=== PATIENT | male | born 1970 | race Caucasian/White ===

== ENCOUNTER 2016-08-07 07:02 | Emergency (ER) | payer MEDICAID ==
[2016-08-07 07:17] VITALS: RESP 18
--- NOTE | 2016-08-07 07:26 | UCPHY ---
H & P Time Seen by Provider: 08/07/16 07:13 Patient Type: Established HPI/ROS: 45-year-old male presents complaining of cough cold symptoms painful urination, and diarrhea for several days. He believes he may have the flu. His is currently being treated for bronchitis. Review of systems As per HPI General no fever no chills no weakness HEENT no eye pain no eye discharge. No eye redness, no sore throat Respiratory positive cough, no shortness of breath Cardiac no chest pain, no peripheral edema GI no abdominal pain, no diarrhea, no constipation, no nausea, no vomiting no flank pain, no hematuria, positive dysuria Musculoskeletal positive myalgias, no joint pain Heme no easy bruising, no easy bleeding Endo no polyuria, no polydipsia Skin no rashes, no pruritus Neuro no syncope, no dizziness, no headaches Psych is no suicidal ideation, no homicidal ideation Past Medical/Surgical History: GERD Epididymitis Social History: Rare alcohol, denies drug use Smoking Status: Never smoked Physical Exam: 45-year-old male Alert and oriented nontoxic appearance, no acute distress afebrile Atraumatic normocephalic Extraocular muscles intact, anicteric Nares mild yellowish discharge Oropharynx mild erythema no tonsillar swelling no exudate no uvular deviation, tolerating own secretions Neck supple no lymphadenopathy Lungs clear to auscultation bilaterally Heart regular rate and rhythm Abdomen normoactive bowel sounds soft nontender Extremities no cyanosis clubbing or edema Skin no rash Constitutional: Initial Vital Signs Temperature (C) 37.1 C 08/07/16 07:13 Heart Rate 76 08/07/16 07:13 Respiratory Rate 18 08/07/16 07:13 Blood Pressure 168/119 H 08/07/16 07:13 O2 Sat (%) 94 08/07/16 07:13 O2 Delivery Mode Room Air Allergies/Adverse Reactions: acetaminophen [From Vicodin] Allergy (Verified 08/07/16 07:13) hydrocodone bitartrate [From Vicodin] Allergy (Verified 08/07/16 07:13) Penicillins Adverse Reaction (Severe, Verified 08/07/16 07:13) Rash Home Medications: Medication Instructions Recorded Prilosec Otc 11/15/14 Benzonatate [Tessalon Pearles (RX)] 100 mg PO TID PRN #30 cap 08/07/16 Oseltamivir Phosphate [Tamiflu 75 75 mg PO BID #10 cap 08/07/16 mg (*)] Medical Decision Making ED Course/Re-evaluation: Patient seen and evaluated for cough cold, dysuria. Physical exam significant for nasal discharge, clear lungs, no scrotal swelling or tenderness. Influenza swab pending, influenza a positive Urinalysis pending Impression Influenza Plan Tamiflu Supportive care Follow up with primary care physician - Data Points Laboratory Results: 08/07/16 08/07/16 07:30 07:25 Urine Color YELLOW Urine Appearance CLEAR Urine pH 5.5 (5.0-7.5) Ur Specific Bennett >= 1.030 (1.002-1.030) Urine Protein NEGATIVE (NEGATIVE) Urine Ketones NEGATIVE (NEGATIVE) Urine Blood NEGATIVE (NEGATIVE) Urine Nitrate NEGATIVE (NEGATIVE) Urine Bilirubin NEGATIVE (NEGATIVE) Urine Urobilinogen 0.2 EU (0.2-1.0) Ur Leukocyte Esterase NEGATIVE (NEGATIVE) Ur Culture Indicated? NOT INDICATED (NI) Urine Glucose NEGATIVE (NEGATIVE) Influenza Typ A,B (DFA) POSITIVE FOR FLU A H (NEGATIVE) Departure - Departure Disposition: Home, Routine, Self-Care Clinical Impression: Influenza A Condition: Good Instructions: Influenza (ED) Referrals: NONE *PRIMARY CARE P,. [Primary Care Provider] - As per Instructions Stand Alone Forms: Work Excuse Prescriptions: Oseltamivir Phosphate [Tamiflu 75 mg (*)] 75 mg PO BID #10 cap Benzonatate [Tessalon Pearles (RX)] 100 mg PO TID PRN #30 cap PRN Reason: Cough, Severe - PQRS PQRS Measurement: Not applicable
[2016-08-07 07:29] LABS: COLOR YELLOW; LEUKOCYTE ESTERASE,URINE NEGATIVE (NEGATIVE); NITRITE,URINE NEGATIVE (NEGATIVE); PH,URINE 5.5 (5.0-7.5)
[2016-08-07 07:52] VITALS: BP 155/67; PULSE 89; TEMP 98.6; O2SAT 95
== END 2016-08-07 07:54 | disposition home or self-care (01) ==
LOC: CED 07:02
DX: J10.1 Influenza due to other identified influenza virus with other respiratory manifestations (principal); R30.9 Painful micturition, unspecified; R19.7 Diarrhea, unspecified; K21.9 Gastro-esophageal reflux disease without esophagitis; N45.1 Epididymitis
CPT/HCPCS: 81003-PO; 87400-PO; 99214-PO; G0463-PO

== ENCOUNTER 2016-11-03 21:51 | Emergency (ER) | payer MEDICAID ==
--- NOTE | 2016-11-03 22:09 | EDPHY ---
H & P Time Seen by Provider: 11/03/16 22:04 HPI/ROS: 46-year-old male presents complaining toothache and gum swelling around that tooth. He states he saw the dentist yesterday who started him on clindamycin and Percocet and told him he needs an extraction.He has run out of his Percocet , and feels like the swelling around that tooth has worsened. Review of systems General no fever no chills no weakness HEENT no eye pain no eye discharge. No eye redness, no sore throat Respiratory no cough, no shortness of breath Cardiac no chest pain, no peripheral edema GI no abdominal pain, no diarrhea, no constipation, no nausea, no vomiting no flank pain, no hematuria, no dysuria Musculoskeletal no myalgias, no joint pain Heme no easy bruising, no easy bleeding Endo no polyuria, no polydipsia Skin no rashes, no pruritus Neuro no syncope, no dizziness, no headaches Psych is no suicidal ideation, no homicidal ideation Past Medical/Surgical History: History of influenza August 2016 Social History: denies excessive alcohol or drug use Smoking Status: Never smoked Physical Exam: 46-year-old male alert and oriented no acute distress nontoxic appearance Alert and oriented in no acute distress nontoxic appearance, afebrile Atraumatic normocephalic oropharynx-no trismus positive poor dentition positive multiple cavities left upper posterior molar with cavity, with circumferential erythema and edema no purulent drainage no fluctuant pocket swelling extends to left upper palate tolerating his own secretions, no tongue swelling no uvular deviation Neck no JVD Lungs clear to auscultation, no respiratory distress Heart regular rate and rhythm Extremities no cyanosis clubbing edema Constitutional: Initial Vital Signs Temperature (C) 37.0 C 11/03/16 22:07 Heart Rate 67 11/03/16 22:07 Respiratory Rate 18 11/03/16 22:07 Blood Pressure 163/73 H 11/03/16 22:07 O2 Sat (%) 97 11/03/16 22:07 O2 Delivery Mode Room Air Allergies/Adverse Reactions: acetaminophen [From Vicodin] Allergy (Verified 11/03/16 22:03) hydrocodone bitartrate [From Vicodin] Allergy (Verified 11/03/16 22:03) Penicillins Adverse Reaction (Severe, Verified 11/03/16 22:03) Rash Home Medications: Medication Instructions Recorded Prilosec Otc 11/15/14 Medical Decision Making ED Course/Re-evaluation: patient seen and evaluated for worsening tooth pain with swelling impression dental abscess plan continue current clindamycin and pain medicine see dentist 1st thing in the morning return if difficulty swallowing or any tongue swelling Departure - Departure Disposition: Home, Routine, Self-Care Clinical Impression: Abscessed tooth Condition: Good Instructions: Dental Abscess (ED) Referrals: THUY ANTONY [Primary Care Provider] - As per Instructions
[2016-11-03 22:13] VITALS: BP 163/73; PULSE 67; RESP 18; TEMP 98.6; O2SAT 97
[2016-11-03] MEDS ORDERED: OXYCODONE/APAP 5/325MG PREPACK#4 BTL TAKEHOME ONE ×2 (22:17→22:27)
== END 2016-11-03 22:33 | disposition home or self-care (01) ==
LOC: CED 21:51
DX: K04.7 Periapical abscess without sinus (principal)

== ENCOUNTER → 2016-12-05 | Emergency (ER) | payer MEDICAID ==
[~2016-12-05] MED LIST: ERYTHROMYCIN 0.5% 1 GM OPHT.OINT LEFTEYE ONE; ERYTHROMYCIN 0.5% 1 GM OPHT.OINT ONE; OXYCODONE/APAP 5/325MG PREPACK#4 BTL TAKEHOME ONE
[2016-12-05 13:55] VITALS: BP 154/62; PULSE 75; RESP 20; TEMP 98; O2SAT 97
--- NOTE | 2016-12-05 14:04 | EDPHY ---
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 He had immediate onset of pain. Does not have had any prior eye injuries in the past. Does not wear glasses or contacts. No discharge. ROS: 10 point Review of Systems is negative except as noted in the HPI. PMH: None Medications: None Allergies: No known drug allergies Social History: No smoking, no alcohol, no recreational drug use Family History: non-contributory Physical Exam: Eye Exam Visual Acuity: Per nurse's note EOM: Intact OU Visual Garcia: Intact OU Pupil: Equal, round and reactive to light and accomodation OU External: Lids, lashes and margins normal OU Slit Lamp; Normal Conjuctiva, Iris normal, Cornea defect appearing in the 1 -2 o'clock position, Anterior chambers clear without cells or flare, no hyphema , normal angles Fluorosceine exam: There is fluorescein uptake over the cornea in the 1 o' clock position, there is no leakage of aqueous humor. - Personal History Current Tetanus Diphtheria and Acellular Pertussis (TDAP): Yes Tetanus Vaccine Date: 2011 - Medical/Surgical History Hx Asthma: No Hx Chronic Respiratory Disease: No Hx Diabetes: No Hx Cardiac Disease: No Hx Renal Disease: No Hx Cirrhosis: No Hx Alcoholism: No Hx HIV/AIDS: No Hx Splenectomy or Spleen Trauma: No Other PMH: GERD, nose surgery, gout, epiididymitis - Social History Smoking Status: Never smoked Constitutional: Initial Vital Signs Temperature (C) 36.6 C 12/05/16 13:54 Heart Rate 75 12/05/16 13:54 Respiratory Rate 20 12/05/16 13:54 Blood Pressure 154/62 H 12/05/16 13:54 O2 Sat (%) 97 12/05/16 13:54 O2 Delivery Mode Room Air Allergies/Adverse Reactions: acetaminophen [From Vicodin] Allergy (Verified 11/03/16 22:03) hydrocodone bitartrate [From Vicodin] Allergy (Verified 11/03/16 22:03) Penicillins Adverse Reaction (Severe, Verified 11/03/16 22:03) Rash Home Medications: Medication Instructions Recorded Prilosec Otc 11/15/14 Departure - Departure Disposition: Home, Routine, Self-Care Clinical Impression: Corneal abrasion Condition: Good Instructions: Corneal Abrasion (ED) Additional Instructions: Apply eye ointment every 4 hours while awake for the next 3 days. You may take ibuprofen and acetaminophen during the day while awake. You may take hydrocodone for pain at night. Follow up with her eye doctor in 2-3 days if symptoms are not improving. Return to the emergency department for increasing pain, discharge from the eye, fevers, chills, or any other concerns. Referrals: Otto Cotto MD [Medical Doctor] - As per Instructions
== END | disposition home or self-care (01) ==
LOC: CED 13:43
DX: S05.02XA Injury of conjunctiva and corneal abrasion without foreign body, left eye, initial encounter (principal); W22.8XXA Striking against or struck by other objects, initial encounter; Y92.009 Unspecified place in unspecified non-institutional (private) residence as the place of occurrence of the external cause

== ENCOUNTER 2018-09-10 17:45 | Emergency (ER) | payer MEDICAID ==
--- NOTE | 2018-09-10 18:36 | EDPHY ---
H & P Stated Complaint: c/o ST/fevers/cough x3 days Time Seen by Provider: 09/10/18 18:02 HPI/ROS: 48 yo M presents c/o sore throat, fever, cough for 3 days. He went to work today but felt awful. Review of systems As per HPI General positive fever positive chills s no weakness HEENT no eye pain no eye discharge. No eye redness, positive sore throat Respiratory positive cough , no shortness of breath Cardiac no chest pain, no peripheral edema GI no abdominal pain, no diarrhea, no constipation, no nausea, no vomiting no flank pain, no hematuria, no dysuria Musculoskeletal no myalgias, no joint pain Heme no easy bruising, no easy bleeding Endo no polyuria, no polydipsia Skin no rashes, no pruritus Neuro no syncope, no dizziness, no headaches Psych is no suicidal ideation, no homicidal ideation Source: Patient Exam Limitations: No limitations - Personal History Current Tetanus Diphtheria and Acellular Pertussis (TDAP): Yes Tetanus Vaccine Date: 2011 - Medical/Surgical History Hx Asthma: No Hx Chronic Respiratory Disease: No Hx Diabetes: No Hx Cardiac Disease: No Hx Renal Disease: No Hx Cirrhosis: No Hx Alcoholism: No Hx HIV/AIDS: No Hx Splenectomy or Spleen Trauma: No Other PMH: GERD, nose surgery, gout, epiididymitis - Family History Significant Family History: No pertinent family hx - Social History Smoking Status: Never smoked Alcohol Use: Occasionally Drug Use: None - Physical Exam Exam: 48-year-old male Alert and oriented in no acute distress nontoxic appearance, afebrile Atraumatic normocephalic Extraocular muscles intact, anicteric Neck-supple, positive anterior cervical lymphadenopathy mildly tender to palpation Oropharynx positive enlarged tonsils, erythematous, no uvular deviation, no purulent exudate, tolerating own secretions, no trismus Lungs clear to auscultation bilaterally Heart regular rate and rhythm Abdomen normoactive bowel sounds soft nontender Extremities no cyanosis clubbing edema Skin no rash Constitutional: Initial Vital Signs Temperature (C) 37.4 C 09/10/18 18:08 Heart Rate 70 09/10/18 18:08 Respiratory Rate 18 09/10/18 18:08 Blood Pressure 151/85 H 09/10/18 18:08 O2 Sat (%) 93 09/10/18 18:08 O2 Delivery Mode Room Air Allergies/Adverse Reactions: Penicillins Allergy (Severe, Verified 12/23/16 20:49) Rash acetaminophen [From Vicodin] Allergy (Verified 11/03/16 22:03) hydrocodone bitartrate [From Vicodin] Allergy (Verified 11/03/16 22:03) Home Medications: Medication Instructions Recorded Prilosec Otc 11/15/14 Concerta 09/10/18 Medical Decision Making ED Course/Re-evaluation: Patient seen and evaluated for sore throat fevers cough. IV established labs drawn Given 1 L normal saline, Decadron 10 mg IV push, Toradol 30 mg IV push CBC within normal limits Strep negative Influenza negative BMP within normal limits Impression Viral syndrome Plan DC home Symptomatic care Follow-up PCP Differential Diagnosis: Differential diagnosis considered but not limited to: URI, bronchitis, streptococcal pharyngitis, pharyngitis, influenza, viral syndrome - Data Points Laboratory Results: 09/10/18 19:05 POC Sodium 140 mEq/L mEq/L (135-145) POC Potassium 3.7 mEq/L mEq/L (3.3-5.0) POC Chloride 105.0 mEq/L mEq/L (97-110) POC Total CO2 25 mEq/L mEq/L (22-31) POC BUN 13 mg/dL mg/dL (7-23) POC Creatinine 0.8 mg/dL mg/dL (0.7-1.3) POC Glucose 97 mg/dL mg/dL (70-100) POC Calcium 9.4 mg/dL mg/dL (8.5-10.4) Medications Given: Discontinued Medications Dexamethasone (Decadron Injection) 10 mg IVP EDNOW ONE Stop: 09/10/18 18:38 Last Admin: 09/10/18 19:06 Dose: 10 mg Sodium Chloride (Ns) 1,000 mls @ 0 mls/hr IV ONCE ONE PRN Reason: Wide Open Stop: 09/10/18 18:38 Last Admin: 09/10/18 19:06 Dose: 1,000 mls Ketorolac Tromethamine (Toradol) 30 mg IVP EDNOW ONE Stop: 09/10/18 20:02 Last Admin: 09/10/18 20:22 Dose: 30 mg Point of Care Test Results: CBC CBC Collection Date 09/10/18 CBC Collection Time 18:58 WBC 10.01 RBC 5.50 HGB 16.3 HCT 47.6 PLT 237 Neut # 6.20 Neut 61.9 LYMPH # 2.56 LYMPH 25.6 MCV 86.5 Chemistry 09/10/18 19:05 POC Sodium 140 mEq/L mEq/L (135-145) POC Potassium 3.7 mEq/L mEq/L (3.3-5.0) POC Chloride 105.0 mEq/L mEq/L (97-110) POC Total CO2 25 mEq/L mEq/L (22-31) POC BUN 13 mg/dL mg/dL (7-23) POC Creatinine 0.8 mg/dL mg/dL (0.7-1.3) POC Glucose 97 mg/dL mg/dL (70-100) POC Calcium 9.4 mg/dL mg/dL (8.5-10.4) Influenza PCR Flu Nasal Swab Collection Date 09/10/18 Flu Nasal Swab Collection Time 18:45 Influenza A Result Not Detected Influenza B Result Not Detected Strep Strep Throat Swab Collection 09/10/18 Date Strep Throat Swab Swab 18:00 Collection Time Strep Result Not Detected Departure - Departure Disposition: Home, Routine, Self-Care Clinical Impression: Viral syndrome, Acute viral pharyngitis Condition: Good Instructions: Pharyngitis (ED), Viral Syndrome (ED) Additional Instructions: May try Benadryl at bedtime for sleep. Referrals: Rodolfo Damico MD [Primary Care Provider] - As per Instructions Stand Alone Forms: Work Excuse
[2018-09-10] MEDS ORDERED: DEXAMETHASONE 10 MG/ML VIAL IVP ONE (18:37)
[2018-09-10] MEDS ORDERED: NS 1,000 ML IV ONE (18:37)
[2018-09-10] MEDS ORDERED: IBUPROFEN 600 MG TAB PO ONE (19:08)
[2018-09-10] MEDS ORDERED: KETOROLAC 30 MG/1 ML SDV IVP ONE (20:01)
[2018-09-10 21:11] VITALS: BP 130/75
== END 2018-09-10 21:06 | disposition home or self-care (01) ==
LOC: CED 17:45
DX: B34.9 Viral infection, unspecified (principal)
CPT/HCPCS: 80048-ER; 96361-ER; 96374-ER; 96375-ER; 99284-ER; J1100; J1885

== ENCOUNTER 2018-09-13 17:23 | Emergency (ER) | payer MEDICAID ==
--- NOTE | 2018-09-13 17:49 | EDPHY ---
H & P Stated Complaint: Bilat ear pain, cough, fever, bilat eye redness and discharge x 6 day Time Seen by Provider: 09/13/18 17:29 HPI/ROS: 48-year-old male seen here earlier this week with flu-like symptoms and severe sore throat returns today with new complaint of eye redness with eye discharge as well as continuing sore throat. He also complains of severe nasal congestion. Review of systems General positive fever positive chills no weakness HEENT no eye pain positive eye redness positive eye discharge , positive sore throat Respiratory positive cough, no shortness of breath Cardiac no chest pain, no peripheral edema GI no abdominal pain, no diarrhea, no constipation, no nausea, no vomiting no flank pain, no hematuria, no dysuria Musculoskeletal no myalgias, no joint pain Heme no easy bruising, no easy bleeding Endo no polyuria, no polydipsia Skin no rashes, no pruritus Neuro no syncope, no dizziness, no headaches Psych is no suicidal ideation, no homicidal ideation Source: Patient, Family Exam Limitations: No limitations - Personal History Current Tetanus Diphtheria and Acellular Pertussis (TDAP): Yes Tetanus Vaccine Date: 2011 - Medical/Surgical History Hx Asthma: No Hx Chronic Respiratory Disease: No Hx Diabetes: No Hx Cardiac Disease: No Hx Renal Disease: No Hx Cirrhosis: No Hx Alcoholism: No Hx HIV/AIDS: No Hx Splenectomy or Spleen Trauma: No Other PMH: GERD, nose surgery for deviated septum, gout, epididymitis - Family History Significant Family History: No pertinent family hx - Social History Smoking Status: Never smoked Alcohol Use: Occasionally Drug Use: None - Physical Exam Exam: 48-year-old male Alert and oriented nontoxic appearance, no acute distress afebrile Atraumatic normocephalic Extraocular muscles intact, anicteric Conjunctiva erythematous with yellow discharge bilaterally Nares mild yellowish discharge, turbinates swelling bilaterally Oropharynx mild erythema positive tonsillar swelling no exudate no uvular deviation, tolerating own secretions Neck supple no lymphadenopathy Lungs clear to auscultation bilaterally Heart regular rate and rhythm Abdomen normoactive bowel sounds soft nontender Extremities no cyanosis clubbing or edema Skin no rash Constitutional: Initial Vital Signs Temperature (C) 37 C 09/13/18 17:30 Heart Rate 72 09/13/18 17:30 Respiratory Rate 18 09/13/18 17:30 Blood Pressure 129/86 H 09/13/18 17:30 O2 Sat (%) 94 09/13/18 17:30 O2 Delivery Mode Room Air Allergies/Adverse Reactions: acetaminophen [From Vicodin] Allergy (Verified 09/13/18 17:31) Pt reports headache hydrocodone bitartrate [From Vicodin] Allergy (Verified 09/13/18 17:31) Pt reports headache Penicillins Allergy (Verified 09/13/18 17:31) Pt reports rash, nausea Home Medications: Medication Instructions Recorded Prilosec Otc 11/15/14 Azithromycin [Zithromax] 250 mg PO DAILY #6 tab 09/13/18 Celexa 09/13/18 Fluticasone Nasal [Flonase Nasal 2 sprays NASAL DAILY #1 mdi 09/13/18 [place] (RX)] Hydroxyzine HCl 09/13/18 Tobramycin 0.3% [Tobrex 0.3% opht 1 - 2 drops OP Q4 7 Days #1 09/13/18 drops (*)] opht.btl Medical Decision Making ED Course/Re-evaluation: Patient seen and evaluated for severe nasal congestion, new eye discharge and I redness, continued sore throat. Exam consistent with likely sinusitis as well as conjunctivitis Impression Acute sinusitis Bilateral conjunctivitis Plan Azithromycin Fluticasone Tobra eye drops Follow-up primary care Differential Diagnosis: Differential diagnosis considered but not limited to: URI, bronchitis, pharyngitis, sinusitis, conjunctivitis, viral syndrome Departure - Departure Disposition: Home, Routine, Self-Care Clinical Impression: Acute pharyngitis, Sinusitis, Acute conjunctivitis of both eyes Condition: Good Instructions: Rhinosinusitis (ED), Conjunctivitis (ED) Referrals: Rodolfo Damico MD [Primary Care Provider] - As per Instructions Stand Alone Forms: Work Excuse Prescriptions: Azithromycin [Zithromax] 250 mg PO DAILY #6 tab Fluticasone Nasal [Flonase Nasal [place] (RX)] 2 sprays NASAL DAILY #1 mdi Tobramycin 0.3% [Tobrex 0.3% opht drops (*)] 1 - 2 drops OP Q4 7 Days #1 opht.btl
[2018-09-13 18:09] VITALS: BP 126/88
== END 2018-09-13 17:57 | disposition home or self-care (01) ==
LOC: CED 17:23
DX: J01.90 Acute sinusitis, unspecified (principal); H10.33 Unspecified acute conjunctivitis, bilateral; J02.9 Acute pharyngitis, unspecified; H92.03 Otalgia, bilateral; K21.9 Gastro-esophageal reflux disease without esophagitis; M10.9 Gout, unspecified; Z88.0 Allergy status to penicillin
CPT/HCPCS: 99284-ER